=== PATIENT | female | born 1960 | race Caucasian/White ===

== ENCOUNTER 2018-08-12 12:18 | Observation (INO) | payer OTHER ==
[2018-08-12 12:50] VITALS: BMI 29.9
[2018-08-12] MEDS ORDERED: ASPIRIN 81 MG CHEWABLE TABLETS PO ONE (14:50)
[2018-08-12 15:05] LABS: BASO % 0.6 % (0-2.0); EOS % 2.9 % (0-4.5); HEMOGLOBIN 14.5 GM/dL (10.7-15.3); MCH 29.4 pg (25.7-33.7); MCHC 34.5 g/dl (32.0-36.0); MEAN CELL VOLUME 85.4 fl (80-96); MEAN PLT VOLUME 8.1 fl (7.5-11.1); MONO % 4.3 % (3.8-10.2); NEUT % 58.2 % (42.8-82.8); PLATELET COUNT 241 K/MM3 (134-434); RBC 4.92 M/mm3 (3.60-5.2); RDW 13.6 % (11.6-15.6); WHITE BLOOD COUNT 6.6 K/mm3 (4.0-10.0)
--- NOTE | 2018-08-12 15:08 | PDOC ---
History of Present Illness - General Chief Complaint: Chest Pain Stated Complaint: SENT BY PCP/CHEST PAIN Time Seen by Provider: 08/12/18 14:02 History Source: Patient Exam Limitations: No Limitations - History of Present Illness Initial Comments: 08/12/18 15:02 Pt is a 58yo F with PMH of HTN, Breast Ca s/p lumpectomy sent to ED from Dr. Guerrier's office for dizziness and chest pain. Pt states that she woke up this morning and felt a pressure in the middle of her chest associated with SOB and vertigo. 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 She was found to have T wve inversions in V1 and V2 which was similar to prior EKG done last year however previous EKG's did not show those changes. Echo was done and was found to be normal however wants pt to be admitted Tele/obs. Pt states that she still has the chest pressure. She was given 2 81mg ASA at 11 this morning. She denies SOB, cough, fevers, chills, dizziness, neck pain, back pain , headaches, changes in vision, abdominal pain, n/v/d, diaphoresis, weakness, numbness/tingling. No FH of IN in the family. PMD: Pernell Christianson Cards: Fareed PMH: HTN PSH: lumpectomy, cholecystectomy Meds: lisinopril Allergies: nkda Social: denies Past History - Past Medical History Allergies/Adverse Reactions: Allergies Allergy/AdvReac Type Severity Reaction Status Date / Time No Known Allergies Allergy Verified 08/12/18 12:48 Home Medications: Ambulatory Orders Lisinopril 20 mg PO DAILY #10 tablet 09/13/17 Cancer: Yes (breast ca) COPD: No HTN: Yes - Surgical History Cholecystectomy: Yes - Immunization History Immunization Up to Date: Yes - Suicide/Smoking/Psychosocial Hx Smoking Status: No Smoking History: Never smoked Have you smoked in the past 12 months: No Number of Cigarettes Smoked Daily: 0 Hx Alcohol Use: No Drug/Substance Use Hx: No Substance Use Type: None Review of Systems - Review of Systems Constitutional: No: Chills, Fever HEENTM: No: Recent change in vision, Double Vision Respiratory: Yes: See HPI. No: Cough, Shortness of Breath Cardiac (ROS): Yes: See HPI, Chest Pain. No: Edema, Lightheadedness, Palpitations, Syncope ABD/GI: No: Constipated, Diarrhea, Nausea, Rectal Bleeding, Vomiting, Abdominal cramping, Tarry Stools : No: Symptoms Reported Musculoskeletal: No: Back Pain Integumentary: No: Symptoms Reported Neurological: Yes: See HPI. No: Headache, Numbness, Tingling, Weakness, Dizziness *Physical Exam - Vital Signs Last Vital Signs Temp Pulse Resp BP Pulse Ox 97.7 F 64 18 122/69 97 08/12/18 12:48 08/12/18 12:48 08/12/18 12:48 08/12/18 12:48 08/12/18 12:48 - Physical Exam General Appearance: Yes: Nourished, Appropriately Dressed. No: Apparent Distress HEENT: positive: EOMI, FELISHA. negative: Pale Conjunctivae, Scleral Icterus (R), Scleral Icterus (L) Neck: positive: Trachea midline, Normal Thyroid, Supple. negative: Carotid bruit, Lymphadenopathy (R), Lymphadenopathy (L) Respiratory/Chest: positive: Lungs Clear, Normal Breath Sounds. negative: Crackles, Rales, Rhonchi, Stridor, Wheezing Cardiovascular: positive: Regular Rhythm, Regular Rate, S1, S2. negative: Edema , JVD, Murmur Vascular Pulses: Carotid (R): 2+, Carotid (L): 2+, Dorsalis-Pedis (R): 2+, Doralis-Pedis (L): 2+ Gastrointestinal/Abdominal: positive: Normal Bowel Sounds, Soft Musculoskeletal: negative: CVA Tenderness Extremity: positive: Normal Capillary Refill. 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 NML intact, Fully Oriented, Alert, Normal Mood/ Affect, Normal Response, Motor Strength 5/5 Moderate Sedation - Procedure Monitoring Vital Signs: Procedure Monitoring Vital Signs Temperature 97.7 F 08/12/18 12:48 Pulse Rate 64 08/12/18 12:48 Respiratory Rate 18 08/12/18 12:48 Blood Pressure 122/69 08/12/18 12:48 O2 Sat by Pulse Oximetry (%) 97 08/12/18 12:48 Heart Score/ECG Review - History History: Moderately suspicious - Electrocardiogram EKG: Non specific repolarization disturbance - Age Age: 45-65 - Risk Factors Risk Factors Heart Score: Yes Hx Hypertension Based on the list above the patient has:: 1-2 risk factors - Troponin Troponin: </= normal limit - Score Heart Score - Total: 4 ED Treatment Course - LABORATORY CBC & Chemistry Diagram: 08/12/18 14:46 08/12/18 14:02 - RADIOLOGY Radiology Studies Ordered: Category Date Time Status CHEST PA & LAT [RAD] Stat Radiology 08/12/18 14:02 Taken Medical Decision Making - Medical Decision Making 08/12/18 15:08 Pt is a 58yo F with PMH of HTN sent to ED from Dr. Guerrier's office for dizziness and chest pain. Pt states that she woke up this morning and felt a pressure in the middle of her chest associated with SOB and vertigo. 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 She was found to have T wve inversions in V1 and V2 which was similar to prior EKG done last year however previous EKG's did not show those changes. Echo was done and was found to be normal however wants pt to be admitted Tele/obs. Pt states that she still has the chest pressure. She was given 2 81mg ASA at 11 this morning. She denies SOB, cough, fevers, chills, dizziness, neck pain, back pain, headaches, changes in vision, abdominal pain, n/v/d, diaphoresis, weakness, numbness/tingling. No FH of IN in the family. Vitals: wnl PE: benign. ddx includes but not limited to acs, pna, ptx, carditis, bronchitis, dissection , pe low suspicion for dissection and pe given normal vital signs, chest pain does not radiate to back, htn seems to be under control, no history of vascular deformities. -EKG done in triage -cxr -cbc, cmp, coags, cardiac profile -162 mg ASA for chest pressure that has not resolved at this time. Will admit to Dr. Kelley tele/obs with consult to Dr. Guerrier Labs wnl. CXR: no acute pathology EKG: T wave inversions in V1 and V2, some flattening in III. HEART score 4 *DC/Admit/Observation/Transfer Diagnosis at time of Disposition: T wave inversion in EKG Chest pain Qualifiers: Chest pain type: unspecified Qualified Code(s): R07.9 - Chest pain, unspecified - Referrals - Patient Instructions - Post Discharge Activity
[2018-08-12] MEDS ORDERED: ASPIRIN 81 MG CHEWABLE TABLETS ONE (15:09)
[2018-08-12 15:20] LABS: ALBUMIN 4.5 g/dl (3.4-5.0); ALK PHOS 97 U/L (45-117); ANION GAP 8 MMOL/L (8-16); BILIRUBIN,TOTAL 1.1 mg/dL (0.2-1); BLOOD UREA NITROGEN 16 mg/dL (7-18); CHLORIDE 105 mmol/L (98-107); CO2 27 mmol/L (21-32); CREATININE 0.7 mg/dL (0.55-1.3); GLUCOSE,RANDOM 122 mg/dL (74-106); MAGNESIUM 2.5 mg/dL (1.8-2.4); POTASSIUM 3.7 mmol/L (3.5-5.1); SGOT/AST 23 U/L (15-37); SGPT/ALT 31 U/L (13-61); SODIUM 140 mmol/L (136-145); TOT PROT 7.9 g/dl (6.4-8.2)
[2018-08-12 15:27] LABS: INR 0.97 (0.83-1.09); PROTHROMBIN TIME (PATIENT) 11.5 SEC (9.7-13.0)
[2018-08-12 15:30] LABS: ACTIVATED PTT 30.5 SECONDS (25.2-36.5)
--- NOTE | 2018-08-12 15:31 | EKG ---
Test Reason : Blood Pressure : / mmHG Vent. Rate : 063 BPM Atrial Rate : 063 BPM P-R Int : 154 ms QRS Dur : 106 ms QT Int : 428 ms P-R-T Axes : 048 -07 023 degrees QTc Int : 437 ms NORMAL SINUS RHYTHM POSSIBLE LEFT ATRIAL ENLARGEMENT LEFT VENTRICULAR HYPERTROPHY ABNORMAL ECG WHEN COMPARED WITH ECG OF 15-OCT-2007 11:23, T WAVE INVERSION NOW EVIDENT IN ANTERIOR LEADS Confirmed by KWABENA PUCKETT, NILDA ([id number]) on 08/12/2018 3:30:55 PM Referred By: Confirmed By:NILDA YUAN MD
--- NOTE | 2018-08-12 15:38 | CON.CARD ---
Cardiology Consult (text) - Consultation Consultation Note: Patient seen and examined for 1st time in office today w/ complaints of new onset of chest pressure, dizziness. Echo done in office: Normal. ECG showed NSR with Non specific T wave changes anteriorly which were present on ECG reviewed from 09/2017 but new compared with 2014. Referred to ER for 24 hours tele obs, STEPHEN, serial ECGs and stress MPI in AM if enzymes normal. Case was d/w ER attending. Will follow. Please call if any questions overnight.
--- NOTE | 2018-08-12 16:09 | PDOC ---
Attending Attestation - Resident Resident Name: AnaTabatha - ED Attending Attestation I have performed the following: I have examined & evaluated the patient, The case was reviewed & discussed with the resident, I agree w/resident's findings & plan, Exceptions are as noted - HPI HPI: 08/12/18 16:29 The patient is a 58-year-old female, with a past medical history of HTN, breast ca s/p lumpectomy, who was sent to the ED from Dr. Quinonez office for evaluation of chest pain and dizziness. The patient states that pain is located in the mid sternal region and describes it as pressure-like in sensation, with associated shortness of breath. She was seen in Dr. Quinonez office and had an EKG done that revealed t wave inversions in V1 and V2. Echo was also performed and was normal, but pt was sent to ED for admission for stress test. She denies any fever, chills, cough, nausea, vomiting, diarrhea, or abdominal pain. Allergies: NKA PCP: Dr. Pernell Christianson Adventure Education Teacher: Dr. Guerrier - Physicial Exam PE: 08/12/18 16:08 GENERAL: Awake, alert, and fully oriented, in no acute distress HEAD: No signs of trauma EYES: PERRLA, EOMI, sclera anicteric, conjunctiva clear ENT: Auricles normal inspection, hearing grossly normal, nares patent, oropharynx clear without exudates. Moist mucosa NECK: Normal ROM, supple, no lymphadenopathy, JVD, or masses LUNGS: Breath sounds equal, clear to auscultation bilaterally. No wheezes, and no crackles HEART: Regular rate and rhythm, normal S1 and S2, no murmurs, rubs or gallops ABDOMEN: Soft, nontender, normoactive bowel sounds. No guarding, no rebound. No masses EXTREMITIES: Normal range of motion, no edema. No clubbing or cyanosis. No cords, erythema, or tenderness NEUROLOGICAL: Normal speech, cranial nerves intact, negative pronator drift, 5/ 5 strength in all 4 extremities, normal sensation to light touch in all 4 extremities, normal cerebellar exam, normal gait, normal reflexes and tone SKIN: Warm, Dry, normal turgor, no rashes or lesions noted. - Medical Decision Making 08/12/18 16:18 58yo F presents to the emergency department for admission for chest pain since this morning. VItals wnl. Exam wnl. EKG with TWI in V2. Labs thusfar wnl, including neg trop, normal CXR. Pt given ASA and admitted for STEPHEN. Heart Score/ECG Review #1 08/12/18 16:17 Twelve-lead EKG was performed and reviewed by me. Normal sinus rhythm, rate 63. Normal axis and intervals. No ST elevations. T wave inversion in V2.
--- NOTE | 2018-08-13 00:57 | HP ---
Admitting History and Physical - Smoking History Smoking history: Never smoked Have you smoked in the past 12 months: No Aproximately how many cigarettes per day: 0 - Alcohol/Substance Use Hx Alcohol Use: No Home Medications - Allergies Allergies/Adverse Reactions: Allergies Allergy/AdvReac Type Severity Reaction Status Date / Time No Known Allergies Allergy Verified 08/12/18 12:48 - Home Medications Home Medications: Ambulatory Orders Lisinopril 20 mg PO DAILY #10 tablet 09/13/17 Physical Examination Vital Signs: Vital Signs Temperature 98.4 F 08/12/18 23:50 Pulse Rate 74 08/12/18 23:50 Respiratory Rate 16 08/12/18 23:50 Blood Pressure 104/60 08/12/18 23:50 O2 Sat by Pulse Oximetry (%) 95 08/12/18 23:50 Labs: CBC, BMP 08/12/18 14:46 08/12/18 14:02
[2018-08-13 07:54] LABS: ALBUMIN 3.8 g/dl (3.4-5.0); ALK PHOS 76 U/L (45-117); ANION GAP 5 MMOL/L (8-16); BILIRUBIN,TOTAL 1.1 mg/dL (0.2-1); BLOOD UREA NITROGEN 19 mg/dL (7-18); CALCIUM 8.4 mg/dL (8.5-10.1); CHLORIDE 109 mmol/L (98-107); CO2 27 mmol/L (21-32); CREATININE 0.5 mg/dL (0.55-1.3); GLUCOSE,RANDOM 98 mg/dL (74-106); SGOT/AST 16 U/L (15-37); SGPT/ALT 26 U/L (13-61); SODIUM 140 mmol/L (136-145); TOT PROT 6.6 g/dl (6.4-8.2)
[2018-08-13 07:58] LABS: BASO % 0.4 % (0-2.0); EOS % 3.3 % (0-4.5); HEMOGLOBIN 12.6 GM/dL (10.7-15.3); LYMPH % 39.3 % (8-40); MCH 28.6 pg (25.7-33.7); MCHC 34.2 g/dl (32.0-36.0); MEAN CELL VOLUME 83.7 fl (80-96); MEAN PLT VOLUME 8.1 fl (7.5-11.1); MONO % 6.4 % (3.8-10.2); NEUT % 50.6 % (42.8-82.8); PLATELET COUNT 217 K/MM3 (134-434); RBC 4.42 M/mm3 (3.60-5.2); RDW 13.7 % (11.6-15.6); WHITE BLOOD COUNT 5.4 K/mm3 (4.0-10.0)
[2018-08-13 08:40] VITALS: PULSE 69
[2018-08-13] MEDS ORDERED: LISINOPRIL 20 MG TABLET (FP) PO SCH (10:00)
[2018-08-13] MEDS ORDERED: ASPIRIN 81 MG CHEWABLE TABLETS PO SCH (10:00)
[2018-08-13 14:16] VITALS: BP 130/51; TEMP 97.6
== END 2018-08-13 16:51 | disposition home or self-care (01) ==
LOC: JER 12:18 → JERBED 15:08 → J4S 08-13 00:58
PROVIDERS: ADMIT Internal Medicine; ATTEND Internal Medicine
DX: R07.89 Other chest pain (principal); R94.31 Abnormal electrocardiogram [ECG] [EKG]; I10 Essential (primary) hypertension; Z85.3 Personal history of malignant neoplasm of breast
CPT/HCPCS: 36415; 71046-TC-FY; 78452-TC; 80053; 82550; 83735; 84484; 85025; 85610; 85730; 93005; 93010; 93017; 99284-25; A9502; G0378

== ENCOUNTER 2020-03-15 05:03 | Day surgery (SDC) | payer OTHER ==
[2020-03-14 16:30] VITALS: BMI 29.8
--- NOTE | 2020-03-14 20:37 | HP ---
[facility]ellite [facility] - Chief Complaint Chief Complaint: left shoulder pain - Past Medical History Allergies/Adverse Reactions: Allergies Allergy/AdvReac Type Severity Reaction Status Date / Time No Known Allergies Allergy Verified 08/12/18 12:48 - Current Medications Current Medications: Home Medications Medication Instructions Recorded Lisinopril 20 mg PO DAILY #10 tablet 09/13/17 [facility] Physical Exam - Physical Examination General Appearance: Well Nourished, Well Developed, Alert & Oriented x3 ENT: Clear Lung: Normal air movement Extremities: Other (left shoulder- + ttp, decr rom, + neer, +crockett, + empty can, nvi) Neurological: Intact, Alert, Oriented Satellite Impression/Plan - Impression/Plan Impression: left shoulder rct, impingement Operative Procedure: left shoulder arthroscopy with RCR, SAD Date to be Performed: 03/15/20
[2020-03-15] MEDS ORDERED: ROPIVACAINE HCL 0.5% 30ML VIAL ONE (07:18)
[2020-03-15] MEDS ORDERED: MIDAZOLAM HCL 2 MG/2 ML SINGLE DOSE VIAL ONE ×2 (07:20)
[2020-03-15] MEDS ORDERED: SUCCINYLCHOLINE CHLORIDE 200 MG/10 ML SYRINGE ONE (07:30)
[2020-03-15] MEDS ORDERED: PROPOFOL 20 ML ONE ×2 (07:30)
[2020-03-15] MEDS ORDERED: ceFAZolin 2 GRAM PREMIX BAG IVPB ONE (08:10)
[2020-03-15] MEDS ORDERED: EPHEDRINE SULFATE/0.9% NACL/PF 50 MG/10 ML SYRINGE NR ONE (08:30)
--- NOTE | 2020-03-15 09:35 | OP ---
Operative Note - Note: Operative Date: 03/15/20 ([facility]) Pre-Operative Diagnosis: left shoulder rct, impingement Operation: left shoulder arthroscopy with SUZANNE, DAVID, TIM Post-Operative Diagnosis: Other (GH OA) Surgeon: Wang Lopez Cable Puller: Usama Mcpherson Anesthesia: General, Local Specimens Removed: shavings Estimated Blood Loss (mls): 5
[2020-03-15] MEDS ORDERED: ONDANSETRON 4 MG/2 ML VIAL IVPUSH PRN (10:03)
[2020-03-15] MEDS ORDERED: oxyCODONE HCL 5 MG TABLET PO PRN ×2 (10:03)
[2020-03-15] MEDS ORDERED: LACTATED RINGERS SOLUTION 1,000 ML IV SCH (10:15)
[2020-03-15 11:23] VITALS: TEMP 97.7
[2020-03-15 12:39] VITALS: BP 120/70; PULSE 70
--- NOTE | 2020-03-15 16:17 | OP ---
DATE OF OPERATION: 03/15/2020 PREOPERATIVE DIAGNOSIS: Left shoulder impingement syndrome, acromioclavicular joint arthritis and adhesive capsulitis. POSTOPERATIVE DIAGNOSIS: Left shoulder impingement syndrome, acromioclavicular joint arthritis and adhesive capsulitis, glenohumeral osteoarthritis. SURGERY: Left shoulder arthroscopy, subacromial decompression, distal clavicle excision, manipulation under anesthesia and synovectomy. SURGEON: David Negron MD DISABILITY BENEFITS SPECIALIST: MESHA Aragon ANESTHESIOLOGIST: Jenna Schroeder DEPUTY [place] [employer] with Doug Coleman MD ANESTHESIA: Left interscalene block, LMA anesthesia. DRAINS: None. COMPLICATIONS: None. BLOOD LOSS: 75 mL BLOOD GIVEN: None. FLUID REPLACEMENT: Plasma-Lyte 1000 mL. SPECIMEN: Arthroscopic shavings. INDICATIONS: This patient is a 59-year-old female with a preoperative diagnosis of long-term left shoulder pain, impingement syndrome, AC joint arthritis and adhesive capsulitis. After understanding the potential risks, complications, alternatives and benefits of surgery versus nonsurgical treatment, patient elected to undergo this procedure. DESCRIPTION OF PROCEDURE: The patient was brought to the operating room. Peripheral IV placed. IV sedation given. Left interscalene block was performed. The LMA anesthesia was induced. She was placed into the beach chair position with ample padding throughout. Manipulation under anesthesia was performed. I was able to stretch from approximately 120 degrees of forward flexion to 135 degrees, abduction from 105 degrees to 125 degrees, internal and external rotation each gained approximately 15 degrees. The left upper extremity was then prepped and draped in a sterile fashion. The bone landmarks were marked out with a marking pen. A posterior portal was established and a diagnostic glenohumeral arthroscopy was performed. The patient had a tremendous amount of inflammatory intraarticular synovitis. I was unable to see anything. Therefore, an anterior portal was established with a spinal needle and I was able to directly visualize it going into the joint and then a green cannula was introduced into the joint and, using the ArthroCare wand under the coagulation setting, I did an arthroscopic synovectomy. Once this was done, I was able to visualize that the rotator cuff was intact from the articular side. Biceps tendon looked good. The labrum was quite degenerative and the patient had wide areas of grade 4 osteoarthritis of both the humeral head and glenoid. The ArthroCare wand was used to gently cauterize, debride and shrink the labrum to stabilize it and to shrink flaps of unstable cartilage from the glenoid. Once this was done, the shoulder joint itself looked much better, but unfortunately she was left with significant osteoarthritis. Next, our attention turned to the subacromial space. The patient had an incredible amount of inflammatory bursitis. A lateral portal was established under direct visualization using a spinal needle. A No. 15 scalpel blade within the green cannula was introduced in the subacromial space. A soft tissue bursectomy was done/extensive soft tissue debridement with the ArthroCare wand on both the ablate setting, coagulation setting, and then I used the shaver to remove debris and soft tissue from the undersurface of the acromion and clavicle. I was able then to directly visualize the top surface of the rotator cuff. It seemed to be intact and the rotator cuff moved as a unit with the humeral head. I did not see any top surface bursal-sided rotator cuff tear. Patient had a very large subacromial spurring, a moderate size subclavicular spur, both of which were taken down with a 5.5-mm oval bur. Both were fine-tuned in reverse and then with a straight shaver. I put the arm through a range of motion. There were no other points of impingement. The AC joint looked patent. The area was copiously irrigated and washed out. All instrumentation and excess saline were removed. The arthroscopy portals were closed with 3-0 nylon sutures. The area was then washed and dried and covered with Aquacel dressing. The patient's arm was put into a sling. Total operative time was about 50 minutes. There were no complications during the case. Blood loss was minimal at approximately 75 mL. She was extubated and brought to the ambulatory recovery room in stable condition. DAVID NEGRON M.D. [id number]
--- NOTE | 2020-03-20 11:44 | PATH ---
Surgical Pathology Report Patient Name: SAJAN FLOR Med. Rec. #: [id number] /Age/Gender: 1960 (Age: 59) / F Account: [id number] Location: [facility] SUR[facility]ICAL Taken: 03/15/2020 Received: 03/15/2020 Reported: 03/20/2020 Physicians: Wang Lopez M.D. Specimen(s) Received LEFT SHOULDER SHAVINGS Clinical History Tear left shoulder Final Diagnosis LEFT SHOULDER SHAVINGS: PORTIONS OF SKELETAL MUSCLE, SYNOVIAL AND FIBROCARTILAGINOUS TISSUE. Electronically Signed Mark Costa M.D. Gross Description Received in formalin, labeled "left shoulder shaving," is a 4.3 x 4.0 x 0.4 cm. aggregate of rodas-yellow soft tissue fragments. A medical detail representative portion is submitted in one cassette. /03/16/2020 saudi03/16/2020
--- NOTE | 2020-03-21 14:07 | EKG ---
Test Reason : Blood Pressure : / mmHG Vent. Rate : 066 BPM Atrial Rate : 066 BPM P-R Int : 142 ms QRS Dur : 104 ms QT Int : 414 ms P-R-T Axes : 010 -08 003 degrees QTc Int : 434 ms NORMAL SINUS RHYTHM MINIMAL VOLTAGE CRITERIA FOR LVH, MAY BE NORMAL VARIANT BORDERLINE ECG WHEN COMPARED WITH ECG OF 12-AUG-2018 12:24, NO SIGNIFICANT CHANGE WAS FOUND Confirmed by Doug North MD ([id number]) on 03/21/2020 2:07:19 PM Referred By: Wang Lopez Confirmed By:Doug North MD
== END 2020-03-15 12:00 | disposition home or self-care (01) ==
LOC: JASU-SURG 05:03
PROVIDERS: ATTEND Orthopaedic Surgery
PROC: 0RNK4ZZ Release Left Shoulder Joint, Percutaneous Endoscopic Approach (ICD-10-PCS; 2020-03-15)
PROC: 0RNKXZZ Release Left Shoulder Joint, External Approach (ICD-10-PCS; 2020-03-15)
PROC: 0PBB4ZZ Excision of Left Clavicle, Percutaneous Endoscopic Approach (ICD-10-PCS; principal; 2020-03-15 08:00)
DX: M75.42 Impingement syndrome of left shoulder (principal); M19.012 Primary osteoarthritis, left shoulder; M75.02 Adhesive capsulitis of left shoulder
CPT/HCPCS: 88304-TC; 93005; 93010; 94760

== ENCOUNTER 2020-05-26 17:24 | Emergency (ER) | payer OTHER ==
[2020-05-26 17:37] VITALS: BP 146/93; PULSE 90; BMI 30.7
[2020-05-26 17:40] VITALS: TEMP 98.7
[2020-05-26] MEDS ORDERED: KETOROLAC TROMETHAMINE 15 MG/ML VIAL IVPUSH ONE (18:35)
[2020-05-26] MEDS ORDERED: LIDOCAINE 5% TOPICAL PATCH TP ONE (18:35)
[2020-05-26 19:02] LABS: EPI CELLS 23 /uL (0-25.1); HYALINE CASTS 0 /uL (0-3.1); URINE APPEARANCE CLOUDY; URINE BACTERIA 102 /uL (0-1359); URINE BILIRUBIN NEGATIVE (NEGATIVE); URINE COLOR YELLOW; URINE GLUCOSE (UA) NEGATIVE (NEGATIVE); URINE KETONE NEGATIVE (NEGATIVE); URINE LEUK ESTERASE TRACE (NEGATIVE); URINE NITRITE NEGATIVE (NEGATIVE); URINE PROTEIN NEGATIVE (NEGATIVE); URINE RBC 16 /uL (0-23.9); URINE UROBILINOGEN 0.2 mg/dL (0.2-1.0); URINE WBC 25 /uL (0-25.8)
[2020-05-26 19:06] LABS: HEMATOCRIT 41.7 % (32.4-45.2); HEMOGLOBIN 13.9 GM/dL (10.7-15.3); MCH 28.1 pg (25.7-33.7); MCHC 33.3 g/dl (32.0-36.0); MEAN CELL VOLUME 84.4 fl (80-96); PLATELET COUNT 270 K/MM3 (134-434); RBC 4.93 M/mm3 (3.60-5.2); RDW 13.7 % (11.6-15.6)
[2020-05-26 19:36] LABS: POTASSIUM 5.5 mmol/L (3.5-5.1)
[2020-05-26 19:38] LABS: ALBUMIN 4.5 g/dl (3.4-5.0); BLOOD UREA NITROGEN 16.5 mg/dL (7-18); CALCIUM 9.7 mg/dL (8.5-10.1)
[2020-05-26 19:42] LABS: CREATININE 0.7 mg/dL (0.55-1.3)
[2020-05-26 19:43] LABS: BILIRUBIN,TOTAL 1.1 mg/dL (0.2-1)
[2020-05-26] MEDS ORDERED: KETOROLAC TROMETHAMINE 15 MG/ML VIAL ONE (19:50)
[2020-05-26] MEDS ORDERED: LIDOCAINE 5% TOPICAL PATCH ONE (19:50)
[2020-05-27] MEDS ORDERED: LIDOCAINE PATCH REMOVAL MC SCH (07:00)
== END 2020-05-26 22:24 | disposition home or self-care (01) ==
LOC: JER 17:24
PROC: 3E0333Z Introduction of Anti-inflammatory into Peripheral Vein, Percutaneous Approach (ICD-10-PCS; principal; 2020-05-26)
DX: R07.89 Other chest pain (principal)
CPT/HCPCS: 36415; 71101-TC-RT-FY; 76700-TC; 80053; 81003; 83690; 85027; 87086; 93005; 93010; 99285-25

== ENCOUNTER 2020-05-28 12:12 | Emergency (ER) | payer OTHER ==
[2020-05-28 12:16] VITALS: BP 153/88; PULSE 91; TEMP 97.4; BMI 30.7
[2020-05-28] MEDS ORDERED: valACYclovir HCL 1000 MG TABLET PO ONE (12:59)
[2020-05-28] MEDS ORDERED: valACYclovir HCL 500 MG TABLET (FP) ONE (13:02)
== END 2020-05-28 13:06 | disposition home or self-care (01) ==
LOC: JERFT 12:12
DX: B02.9 Zoster without complications (principal)
CPT/HCPCS: 99283-25

== ENCOUNTER 2020-09-03 12:51 | Inpatient (IN) | payer OTHER ==
[2020-09-03] MEDS ORDERED: SODIUM CHLORIDE 1,000 ML IV STA (13:31)
[2020-09-03 13:44] LABS: VENOUS BASE EXCESS -2.4 mmol/L (-2-2); VENOUS O2 SATURATION 96.9 % (70-80); VENOUS PCO2 33.6 mmHg (38-52); VENOUS PH 7.42 (7.310-7.410)
[2020-09-03] MEDS ORDERED: DEXAMETHASONE SOD PHOSPHATE 10 MG/1 ML VIAL IVPUSH ONE (13:52)
[2020-09-03 13:57] LABS: BASO % 0.1 % (0-2.0); EOS % 0.3 % (0-4.5); HEMATOCRIT 38.5 % (32.4-45.2); HEMOGLOBIN 12.8 GM/dL (10.7-15.3); LYMPH % 11.8 % (8-40); MCH 27.8 pg (25.7-33.7); MCHC 33.2 g/dl (32.0-36.0); MEAN CELL VOLUME 83.6 fl (80-96); MEAN PLT VOLUME 7.6 fl (7.5-11.1); MONO % 6.7 % (3.8-10.2); NEUT % 81.1 % (42.8-82.8); PLATELET COUNT 321 K/MM3 (134-434); RDW 14.2 % (11.6-15.6); WHITE BLOOD COUNT 12.9 K/mm3 (4.0-10.0)
[2020-09-03 14:05] LABS: INR 1.06 (0.83-1.09)
[2020-09-03 14:07] LABS: ACTIVATED PTT 25.9 SECONDS (25.2-36.5); CHLORIDE 106 mmol/L (98-107); POTASSIUM 4.2 mmol/L (3.5-5.1); SODIUM 140 mmol/L (136-145)
[2020-09-03 14:10] LABS: ALBUMIN 3.4 g/dl (3.4-5.0); ANION GAP 8 MMOL/L (8-16); BLOOD UREA NITROGEN 16.8 mg/dL (7-18); CALCIUM 8.6 mg/dL (8.5-10.1); CO2 27 mmol/L (21-32); GLUCOSE,RANDOM 100 mg/dL (74-106)
[2020-09-03 14:13] LABS: BILIRUBIN,DIRECT 0.2 mg/dL (0.0-0.2); CREATININE 0.6 mg/dL (0.55-1.3); SGOT/AST 28 U/L (15-37); SGPT/ALT 64 U/L (13-61)
[2020-09-03 14:15] LABS: LDH 344 U/L (84-246); TOT PROT 6.7 g/dl (6.4-8.2)
[2020-09-03 14:16] LABS: ALK PHOS 80 U/L (45-117)
[2020-09-03 14:20] LABS: N-TERMINAL BNP 63.1 pg/ml (5-125)
[2020-09-03] MEDS ORDERED: DEXAMETHASONE SOD PHOSPHATE 10 MG/1 ML VIAL ONE (14:23)
[2020-09-03 17:21] LABS: EPI CELLS 1 /uL (0-25.1); HYALINE CASTS 0 /uL (0-3.1); URINE APPEARANCE CLEAR; URINE BACTERIA 76 /uL (0-1359); URINE BILIRUBIN NEGATIVE (NEGATIVE); URINE COLOR YELLOW; URINE GLUCOSE (UA) NEGATIVE (NEGATIVE); URINE KETONE NEGATIVE (NEGATIVE); URINE LEUK ESTERASE NEGATIVE (NEGATIVE); URINE NITRITE NEGATIVE (NEGATIVE); URINE PROTEIN NEGATIVE (NEGATIVE); URINE RBC 4 /uL (0-23.9); URINE UROBILINOGEN 0.2 mg/dL (0.2-1.0); URINE WBC 1 /uL (0-25.8)
[2020-09-03] MEDS ORDERED: AZITHROMYCIN IVPB 500 MG/250 ML BAG IVPB ONE (22:26)
[2020-09-03] MEDS ORDERED: ALBUTEROL SO4 HFA INHALER IH PRN (22:28)
[2020-09-03] MEDS ORDERED: DEXTROSE 5%-WATER - 50 ML IVPB ONE (22:53)
[2020-09-03] MEDS ORDERED: cefTRIAXone SODIUM 1 GM VIAL ONE (22:53)
[2020-09-03] MEDS: CEFTRIAXONE 1 GM in DEXTROSE 5%-WATER - 50 ML IVPB SCH (23:15)
[2020-09-03] MEDS: ASCORBIC ACID 500 MG TABLET (FP) PO SCH (23:16)
[2020-09-03] MEDS: ENOXAPARIN NA (PORCINE) 60 MG/0.6 ML DISP.SYRIN SQ SCH (23:16)
[2020-09-03 23:58] VITALS: BMI 28.5
[2020-09-04 09:43] LABS: POTASSIUM 4.1 mmol/L (3.5-5.1)
[2020-09-04 09:49] LABS: CALCIUM 8.5 mg/dL (8.5-10.1); HEMATOCRIT 33.7 % (32.4-45.2); HEMOGLOBIN 11.3 GM/dL (10.7-15.3); LYMPH % 18.9 % (8-40); MCHC 33.4 g/dl (32.0-36.0); MEAN CELL VOLUME 83.6 fl (80-96); MEAN PLT VOLUME 7.8 fl (7.5-11.1); NEUT % 71.1 % (42.8-82.8); PLATELET COUNT 256 K/MM3 (134-434); RBC 4.03 M/mm3 (3.60-5.2); RDW 14.6 % (11.6-15.6); WHITE BLOOD COUNT 6.7 K/mm3 (4.0-10.0)
[2020-09-04 09:50] LABS: BLOOD UREA NITROGEN 14.3 mg/dL (7-18)
[2020-09-04 09:53] LABS: CREATININE 0.3 mg/dL (0.55-1.3)
[2020-09-04 09:54] LABS: BILIRUBIN,TOTAL 0.7 mg/dL (0.2-1)
[2020-09-04] MEDS ORDERED: LISINOPRIL 20 MG TABLET PO SCH (10:00)
[2020-09-04] MEDS ORDERED: DEXTROSE 5%-WATER - 50 ML IVPB ONE (11:15)
[2020-09-04] MEDS ORDERED: cefTRIAXone SODIUM 1 GM VIAL ONE (11:15)
[2020-09-04] MEDS: ASCORBIC ACID 500 MG TABLET (FP) PO SCH ×2 (11:20→21:13)
[2020-09-04] MEDS: ENOXAPARIN NA (PORCINE) 60 MG/0.6 ML DISP.SYRIN SQ SCH ×2 (11:20→21:37)
[2020-09-04] MEDS: ZINC SULFATE 220 MG CAPSULE (FP) PO SCH ×2 (11:20→21:13)
[2020-09-04] MEDS: DEXAMETHASONE SOD PHOSPHATE 4 MG/1 ML VIAL IVPUSH SCH (11:21)
[2020-09-04] MEDS: CEFTRIAXONE 1 GM in DEXTROSE 5%-WATER - 50 ML IVPB SCH (11:21)
[2020-09-04] MEDS: CHOLECALCIFEROL (VIT D3) 1,000 UNIT (25 MCG) TABLET PO SCH (11:21)
[2020-09-05] MEDS ORDERED: cefTRIAXone SODIUM 1 GM VIAL ONE (09:07)
[2020-09-05] MEDS ORDERED: DEXTROSE 5%-WATER - 50 ML IVPB ONE (09:07)
[2020-09-05] MEDS: CEFTRIAXONE 1 GM in DEXTROSE 5%-WATER - 50 ML IVPB SCH (09:26)
[2020-09-05] MEDS: DEXAMETHASONE SOD PHOSPHATE 4 MG/1 ML VIAL IVPUSH SCH (09:27)
[2020-09-05] MEDS: ZINC SULFATE 220 MG CAPSULE (FP) PO SCH ×2 (09:29→22:34)
[2020-09-05] MEDS: ASCORBIC ACID 500 MG TABLET (FP) PO SCH ×2 (09:30→22:34)
[2020-09-05] MEDS: CHOLECALCIFEROL (VIT D3) 1,000 UNIT (25 MCG) TABLET PO SCH (09:31)
[2020-09-05] MEDS: ENOXAPARIN NA (PORCINE) 60 MG/0.6 ML DISP.SYRIN SQ SCH ×2 (09:42→22:34)
[2020-09-05 10:02] LABS: POTASSIUM 3.8 mmol/L (3.5-5.1)
[2020-09-05 10:06] LABS: ALBUMIN 3.2 g/dl (3.4-5.0); BASO % 0.1 % (0-2.0); BLOOD UREA NITROGEN 18.8 mg/dL (7-18); CALCIUM 8.9 mg/dL (8.5-10.1); EOS % 1.3 % (0-4.5); HEMATOCRIT 37.8 % (32.4-45.2); HEMOGLOBIN 12.9 GM/dL (10.7-15.3); LYMPH % 22.8 % (8-40); MCH 28.2 pg (25.7-33.7); MEAN CELL VOLUME 82.8 fl (80-96); MEAN PLT VOLUME 7.5 fl (7.5-11.1); NEUT % 71.8 % (42.8-82.8); PLATELET COUNT 368 K/MM3 (134-434); RBC 4.57 M/mm3 (3.60-5.2); RDW 14.2 % (11.6-15.6); WHITE BLOOD COUNT 8.7 K/mm3 (4.0-10.0)
[2020-09-05 10:10] LABS: CREATININE 0.5 mg/dL (0.55-1.3)
[2020-09-05 10:11] LABS: BILIRUBIN,TOTAL 1.4 mg/dL (0.2-1); TOT PROT 6.9 g/dl (6.4-8.2)
[2020-09-06] MEDS ORDERED: DEXTROSE 5%-WATER - 50 ML IVPB ONE (10:08)
[2020-09-06] MEDS ORDERED: cefTRIAXone SODIUM 1 GM VIAL ONE (10:08)
[2020-09-06] MEDS: ZINC SULFATE 220 MG CAPSULE (FP) PO SCH ×2 (10:25→21:54)
[2020-09-06] MEDS: ASCORBIC ACID 500 MG TABLET (FP) PO SCH ×2 (10:25→21:54)
[2020-09-06] MEDS: DEXAMETHASONE SOD PHOSPHATE 4 MG/1 ML VIAL IVPUSH SCH (10:25)
[2020-09-06] MEDS: CHOLECALCIFEROL (VIT D3) 1,000 UNIT (25 MCG) TABLET PO SCH (10:26)
[2020-09-06] MEDS: CEFTRIAXONE 1 GM in DEXTROSE 5%-WATER - 50 ML IVPB SCH (10:26)
[2020-09-06] MEDS: ENOXAPARIN NA (PORCINE) 60 MG/0.6 ML DISP.SYRIN SQ SCH ×2 (10:27→21:54)
[2020-09-06 10:28] LABS: BASO % 0.1 % (0-2.0); HEMOGLOBIN 12.3 GM/dL (10.7-15.3); LYMPH % 29.7 % (8-40); MCH 27.9 pg (25.7-33.7); MCHC 33.4 g/dl (32.0-36.0); MEAN CELL VOLUME 83.7 fl (80-96); MEAN PLT VOLUME 7.7 fl (7.5-11.1); MONO % 6.6 % (3.8-10.2); NEUT % 62.6 % (42.8-82.8); PLATELET COUNT 315 K/MM3 (134-434); RBC 4.42 M/mm3 (3.60-5.2); RDW 14.5 % (11.6-15.6); WHITE BLOOD COUNT 7.9 K/mm3 (4.0-10.0)
[2020-09-06 10:53] LABS: POTASSIUM 3.6 mmol/L (3.5-5.1)
[2020-09-06 11:01] LABS: BLOOD UREA NITROGEN 18.1 mg/dL (7-18); CALCIUM 8.5 mg/dL (8.5-10.1)
[2020-09-06 11:05] LABS: CREATININE 0.5 mg/dL (0.55-1.3)
[2020-09-06 11:06] LABS: BILIRUBIN,TOTAL 0.8 mg/dL (0.2-1); TOT PROT 6.2 g/dl (6.4-8.2)
[2020-09-07 08:38] LABS: BASO % 0.1 % (0-2.0); EOS % 0.4 % (0-4.5); HEMATOCRIT 35.3 % (32.4-45.2); HEMOGLOBIN 11.7 GM/dL (10.7-15.3); LYMPH % 33.8 % (8-40); MCH 27.6 pg (25.7-33.7); MCHC 33.1 g/dl (32.0-36.0); MEAN CELL VOLUME 83.4 fl (80-96); MEAN PLT VOLUME 7.7 fl (7.5-11.1); MONO % 7.6 % (3.8-10.2); NEUT % 58.1 % (42.8-82.8); PLATELET COUNT 307 K/MM3 (134-434); RBC 4.23 M/mm3 (3.60-5.2); RDW 13.9 % (11.6-15.6); WHITE BLOOD COUNT 7.6 K/mm3 (4.0-10.0)
[2020-09-07 09:00] LABS: POTASSIUM 4.1 mmol/L (3.5-5.1)
[2020-09-07 09:13] LABS: ALBUMIN 3.1 g/dl (3.4-5.0); BLOOD UREA NITROGEN 21.2 mg/dL (7-18); CALCIUM 8.7 mg/dL (8.5-10.1)
[2020-09-07 09:16] LABS: CREATININE 0.4 mg/dL (0.55-1.3)
[2020-09-07 09:18] LABS: BILIRUBIN,TOTAL 0.9 mg/dL (0.2-1); TOT PROT 6.1 g/dl (6.4-8.2)
[2020-09-07] MEDS ORDERED: DEXTROSE 5%-WATER - 50 ML IVPB ONE (10:20)
[2020-09-07] MEDS ORDERED: cefTRIAXone SODIUM 1 GM VIAL ONE (10:20)
[2020-09-07] MEDS ORDERED: PT OWN MED DRAWER 7, Y5N ONE (10:20)
[2020-09-07] MEDS: DEXAMETHASONE SOD PHOSPHATE 4 MG/1 ML VIAL IVPUSH SCH (10:27)
[2020-09-07] MEDS: ENOXAPARIN NA (PORCINE) 60 MG/0.6 ML DISP.SYRIN SQ SCH (10:29)
[2020-09-07] MEDS: CHOLECALCIFEROL (VIT D3) 1,000 UNIT (25 MCG) TABLET PO SCH (10:29)
[2020-09-07] MEDS: ASCORBIC ACID 500 MG TABLET (FP) PO SCH (10:29)
[2020-09-07] MEDS: ZINC SULFATE 220 MG CAPSULE (FP) PO SCH (10:29)
[2020-09-07] MEDS: CEFTRIAXONE 1 GM in DEXTROSE 5%-WATER - 50 ML IVPB SCH (10:29)
[2020-09-07 13:54] VITALS: BP 122/71; PULSE 68; TEMP 97.9
== END 2020-09-07 14:59 | disposition home or self-care (01) | DRG 177 ==
LOC: JER 12:51 → JERBED 15:12 → J5S 22:27
PROVIDERS: ADMIT Internal Medicine; ATTEND Internal Medicine
DX: U07.1 COVID-19 (principal); J12.82 Pneumonia due to coronavirus disease 2019; J96.01 Acute respiratory failure with hypoxia; I10 Essential (primary) hypertension; E04.1 Nontoxic single thyroid nodule; J06.9 Acute upper respiratory infection, unspecified; Z85.3 Personal history of malignant neoplasm of breast
CPT/HCPCS: 36415; 71045-TC-FY; 71046-TC-FY; 80053; 81003; 82248; 82550; 82728; 82803; 83605; 83615; 83880; 84484; 85025; 85379; 85610; 85730; 86140; 86769; 87040; 87086; 87804; 93005; 93010; 99285-25; C9803; J1100; U0003

== ENCOUNTER 2023-07-19 07:45 | Emergency (ER) | payer OTHER ==
[2023-07-19 08:00] VITALS: BP 127/86; PULSE 102; RESP 20; TEMP 99.3; BMI 30.7
== END 2023-07-19 09:13 | disposition home or self-care (01) ==
LOC: JER 07:45 → JERFT 07:45
DX: R09.89 Other specified symptoms and signs involving the circulatory and respiratory systems (principal); R05.9 Cough, unspecified; R09.81 Nasal congestion; J06.9 Acute upper respiratory infection, unspecified; Z20.822 Contact with and (suspected) exposure to COVID-19
CPT/HCPCS: 0241U-QW; 99283-25